=== PATIENT | female | born 1955 | race Caucasian/White ===

== ENCOUNTER 2021-01-08 17:49 | Emergency (ER) | payer OTHER ==
[2021-01-08 18:06] VITALS: BP 117/75; PULSE 78; TEMP 98.9; BMI 25.8
== END 2021-01-08 20:16 | disposition home or self-care (01) ==
LOC: JERFT 17:49
DX: S62.92XA Unspecified fracture of left hand, initial encounter for closed fracture (principal)
CPT/HCPCS: 73200-TC-RT; 99284-25